=== PATIENT | female | born 1990 | race American Indian/Alaskan Native ===

== ENCOUNTER 2021-02-04 10:23 | Emergency (ER) | payer BC ==
[2021-02-04 11:37] LABS: Alanine Aminotransferase 9 units/L (7-56); Albumin 4.1 g/dL (3.9-5); Blood Urea Nitrogen 5 mg/dL (7-17); Calcium 9.4 mg/dL (8.4-10.2); Hemolysis Index 5
[2021-02-04 11:43] LABS: Basophils % (Auto) 0.4 % (0.0-1.8); Eosinophils # (Auto) 0.1 K/mm3 (0.0-0.4); Eosinophils % (Auto) 1.6 % (0.0-4.3); Hematocrit 37.2 % (30.3-42.9); Hemoglobin 12.7 gm/dl (10.1-14.3); Lymphocytes # (Auto) 1.6 K/mm3 (1.2-5.4); Lymphocytes % (Auto) 19.9 % (13.4-35.0); Mean Corpuscular HGB Conc 34 % (30-34); Mean Corpuscular Volume 84 fl (79-97); Monocytes # (Auto) 0.7 K/mm3 (0.0-0.8); Monocytes % (Auto) 8.6 % (0.0-7.3); Platelet Count 351 K/mm3 (140-440); Red Blood Count 4.44 M/mm3 (3.65-5.03); Red Cell Distribution Width 14.4 % (13.2-15.2)
[2021-02-04 12:00] LABS: BUN/Creatinine Ratio 8
--- NOTE | 2021-02-04 12:22 | Emergency Department Report ---
ED General Adult HPI - General Chief complaint: Vaginal Bleeding Stated complaint: 10WKS BLEEEDING Time Seen by Provider: 02/04/21 10:46 Source: patient Mode of arrival: Ambulatory Limitations: No Limitations - History of Present Illness Initial comments: 31-year-old -[place] female patient presents with bleeding during today. She states she noticed vaginal bleeding around 2 AM this morning that was very light and spotty. She has not used a full pad today. She denies any abdominal pain, dysuria/hematuria/urinary frequency, vaginal discharge/dyspareunia, fever/chills/sweats, or stool changes. She is G2, . She reports her first [facility] appointment is Monday next week. Patient states she is otherwise feeling well. No other past medical history. - Related Data Home Medications Medication Instructions Recorded Confirmed Last Taken Vit-Fe Fumar-FA [ 1 tab PO QDAY 10/07/20 10/07/20 Unknown Vitamin] Previous Rx's Medication Instructions Recorded Last Taken Type HYDROcodone/APAP 5-325 [[place] 1 each PO Q6HR PRN #15 tablet 10/07/20 Unknown Rx 5/325] Ibuprofen [Motrin] 800 mg PO Q8HR PRN #40 tablet 10/07/20 Unknown Rx Amoxicillin/Potassium Clav 1 each PO BID 5 Days #10 tablet 02/04/21 Unknown Rx [Augmentin 875-125 Tablet] Allergies Allergy/AdvReac Type Severity Reaction Status Date / Time No Known Allergies Allergy Verified 02/04/21 10:27 ED Review of Systems ROS: Stated complaint: 10WKS BLEEEDING Other details as noted in HPI Constitutional: denies: chills, fever, malaise Respiratory: denies: shortness of breath Cardiovascular: denies: chest pain Gastrointestinal: denies: abdominal pain, nausea, vomiting Genitourinary: abnormal menses. denies: urgency, dysuria, frequency, hematuria, discharge, dyspareunia Skin: denies: lesions Neurological: denies: headache Hematological/Lymphatic: denies: swollen glands ED Past Medical Hx - Past Medical History Previous Medical History?: No Hx Hypertension: No Hx Liver Disease: No Hx Renal Disease: No - Surgical History Additional Surgical History: BREAST REDUCTION - Social History Smoking Status: Never Smoker - Medications Home Medications: Home Medications Medication Instructions Recorded Confirmed Last Taken Type HYDROcodone/APAP 5-325 [[place] 1 each PO Q6HR PRN #15 tablet 10/07/20 Unknown Rx 5/325] Ibuprofen [Motrin] 800 mg PO Q8HR PRN #40 tablet 10/07/20 Unknown Rx Vit-Fe Fumar-FA [ 1 tab PO QDAY 10/07/20 10/07/20 Unknown History Vitamin] Amoxicillin/Potassium Clav 1 each PO BID 5 Days #10 tablet 02/04/21 Unknown Rx [Augmentin 875-125 Tablet] ED Physical Exam - General Limitations: No Limitations General appearance: alert, in no apparent distress - Head Head exam: Present: atraumatic, normocephalic - Eye Eye exam: Present: normal appearance. Absent: scleral icterus - Respiratory Respiratory exam: Present: normal lung sounds bilaterally. Absent: respiratory distress - Cardiovascular Cardiovascular Exam: Present: regular rate - GI/Abdominal GI/Abdominal exam: Present: soft, normal bowel sounds. Absent: distended, tenderness, guarding, rebound, rigid - Neurological Exam Neurological exam: Present: alert, oriented X3 - Psychiatric Psychiatric exam: Present: normal affect, normal mood - Skin Skin exam: Present: warm, dry, intact, normal color. Absent: rash ED Course Vital Signs 02/04/21 10:31 Temperature 98.6 F Pulse Rate 95 H Respiratory 20 Rate Blood Pressure 123/85 O2 Sat by Pulse 97 Oximetry ED Medical Decision Making - Lab Data Result diagrams: 02/04/21 10:59 02/04/21 10:59 - Radiology Data Radiology results: report reviewed ULTRASOUND OBSTETRIC INDICATION / CLINICAL INFORMATION: bleeding preg. Clinical Gestational Age (GA) in weeks, days: 10, 6 TECHNIQUE: Transabdominal. COMPARISON: None available. FINDINGS: GESTATIONAL SAC: Well-defined oval shape and intrauterine in location. YOLK SAC: Not seen EMBRYO/FETUS: No significant abnormality. - [place]-Rump Length = 3.5 cm = 10, 3 weeks, days - Heart Rate, beats per minute (if present) = 176 ADNEXA: There is a 2.4 cm cyst in the left ovary. FREE FLUID: None. ADDITIONAL FINDINGS: None. IMPRESSION: 1. Single, living intrauterine with estimated sonographic age of 10, 3 weeks, days. - Medical Decision Making 31-year-old -[place] female patient presents with bleeding during today. She states she noticed vaginal bleeding around 2 AM this morning that was very light and spotty. She has not used a full pad today. She denies any abdominal pain, dysuria/hematuria/urinary frequency, vaginal discharge/dyspareunia, fever/chills/sweats, or stool changes. She is G2, . She reports her first [facility] appointment is Monday next week. Patient states she is otherwise feeling well. No other past medical history. Normal IUP at 10 weeks 3 days noted on ultrasound. UA shows UTI. Augmentin given for infection. Patient is well-appearing, her vitals are normal, she is stable for discharge home. Recommend follow-up with [facility] as scheduled next week. Strict return precautions were discussed in detail with patient verbalized understanding. Critical care attestation.: If time is entered above; I have spent that time in minutes in the direct care of this critically ill patient, excluding procedure time. ED Disposition Clinical Impression: Vaginal bleeding during , UTI in Disposition: HOME / SELF CARE / HOMELESS Is pt being admited?: No Condition: Stable Additional Instructions: Follow-up with your [facility] as scheduled Prescriptions: Amoxicillin/Potassium Clav [Augmentin 875-125 Tablet] 1 each PO BID 5 Days #10 tablet
--- NOTE | 2021-02-04 13:33 | Ultrasound Report ---
ULTRASOUND OBSTETRIC INDICATION / CLINICAL INFORMATION: bleeding preg. Clinical Gestational Age (GA) in weeks, days: 10, 6 TECHNIQUE: Transabdominal. COMPARISON: None available. FINDINGS: GESTATIONAL SAC: Well-defined oval shape and intrauterine in location. YOLK SAC: Not seen EMBRYO/FETUS: No significant abnormality. - [place]-Rump Length = 3.5 cm = 10, 3 weeks, days - Heart Rate, beats per minute (if present) = 176 ADNEXA: There is a 2.4 cm cyst in the left ovary. FREE FLUID: None. ADDITIONAL FINDINGS: None. IMPRESSION: 1. Single, living intrauterine with estimated sonographic age of 10, 3 weeks, days. Signer Name: Hector Leung MD Signed: 02/04/2021 1:29 PM Workstation Name: [id number]
[2021-02-04 13:36] LABS: Bacteria,Urine 1+ /HPF (Negative); Bilirubin,Urine NEG (Negative); Blood,Urine LG (Negative); Color,Urine Yellow (Yellow); Mucus,Urine 1+ /HPF
[2021-02-04 13:58] VITALS: BP 133/75
== END 2021-02-04 13:58 | disposition home or self-care (01) ==
LOC: ED 10:23
DX: O20.9 Hemorrhage in early pregnancy, unspecified (principal); O23.41 Unspecified infection of urinary tract in pregnancy, first trimester; Z3A.10 10 weeks gestation of pregnancy; Z98.890 Other specified postprocedural states
CPT/HCPCS: 36415; 76801; 80053; 81001; 84702; 85025; 86900; 86901; 87086; 99284

== ENCOUNTER 2021-08-27 21:43 | Outpatient (CLI) | payer OTHER, BC ==
[2021-08-28 00:28] VITALS: BP 120/77
[2021-08-28] MEDS ORDERED: hydrOXYzine PAMOATE 25 MG CAP PO PRN (00:38)
== END 2021-08-28 01:05 | disposition home or self-care (01) ==
LOC: TRG 21:43 → APU 21:45 → TRG 08-28 01:05
PROVIDERS: ATTEND Obstetrics & Gynecology
DX: Z34.93 Encounter for supervision of normal pregnancy, unspecified, third trimester (principal); Z3A.40 40 weeks gestation of pregnancy
CPT/HCPCS: 59025

== ENCOUNTER 2021-08-29 19:46 | Outpatient (CLI) | payer OTHER, BC ==
[2021-08-29 20:34] VITALS: BP 115/65
[2021-08-29] MEDS ORDERED: MORPHINE 10 MG/1 ML INJ IM ONE (21:36)
[2021-08-29] MEDS ORDERED: HYDROmorphone 2 MG/1 ML INJ IM ONE (21:55)
== END 2021-08-30 04:23 | disposition home or self-care (01) ==
LOC: TRG 19:46 → APU 19:47 → TRG 08-30 04:23
PROVIDERS: ATTEND Obstetrics & Gynecology
DX: O62.9 Abnormality of forces of labor, unspecified (principal); O42.90 Premature rupture of membranes, unspecified as to length of time between rupture and onset of labor, unspecified weeks of gestation; Z3A.00 Weeks of gestation of pregnancy not specified
CPT/HCPCS: 59025; J1170

== ENCOUNTER 2021-08-31 16:59 | Inpatient (IN) | payer OTHER, BC ==
[2021-08-31 18:47] LABS: Hematocrit 30.7 % (30.3-42.9); Hemoglobin 10.3 gm/dl (10.1-14.3); Mean Corpuscular HGB Conc 34 % (30-34); Mean Corpuscular Volume 80 fl (79-97); Platelet Count 263 K/mm3 (140-440); Red Blood Count 3.84 M/mm3 (3.65-5.03); Red Cell Distribution Width 14.3 % (13.2-15.2)
[2021-08-31] MEDS ORDERED: ONDANSETRON 4 MG/2 ML INJ IV PRN (19:51)
[2021-08-31] MEDS ORDERED: CARBOPROST TROMETHAMINE 250 MCG/1 ML INJ IM PRN (19:51)
[2021-08-31] MEDS ORDERED: AMPICILLIN/NS 2 GM/100 ML 2 GM/100 ML BAG IV ONE (19:51)
[2021-08-31] MEDS ORDERED: LIDOCAINE (2%) 20 MG/1 ML VIAL 20 ML MDV INFILTRATI ONE (19:51)
[2021-08-31] MEDS ORDERED: LOPERAMIDE 2 MG CAP PO PRN (19:51)
[2021-08-31] MEDS ORDERED: MINERAL OIL 30 ML ORAL LIQD PO PRN (19:51)
[2021-08-31] MEDS ORDERED: METHYLERGONOVINE MALEATE 0.2 MG/ML VIAL IM PRN (19:51)
[2021-08-31] MEDS ORDERED: ePHEDrine SULFATE 50 MG/1 ML INJ IV PRN (19:51)
[2021-08-31] MEDS ORDERED: ACETAMINOPHEN 325 MG TAB PO PRN (19:51)
[2021-08-31] MEDS ORDERED: miSOPROStol 200 MCG TAB PR PRN (19:51)
[2021-08-31] MEDS ORDERED: TERBUTALINE 1 MG/1 ML INJ SUB-Q PRN (19:51)
[2021-08-31] MEDS ORDERED: BUTORPHANOL 2 MG/1 ML INJ IV PRN (19:51)
[2021-08-31] MEDS ORDERED: fentaNYL 100 MCG/2 ML INJ IV PRN (19:51)
[2021-08-31] MEDS ORDERED: OXYTOCIN 10 UNIT/1 ML INJ IM PRN (19:51)
[2021-08-31] MEDS ORDERED: OXYTOCIN DRIP 30 UNITS/500 ML BAG IV SCH ×2 (20:00)
[2021-08-31] MEDS ORDERED: LACTATED RINGERS 1,000 ML IV SCH (20:00)
[2021-09-01] MEDS ORDERED: diphenhydrAMINE 50 MG/ML VIAL IV PRN (00:12)
[2021-09-01] MEDS ORDERED: LACTATED RINGERS 250 ML IV SOLN IV ONE (00:12)
[2021-09-01] MEDS ORDERED: ONDANSETRON 4 MG/2 ML INJ IV PRN ×2 (00:12→16:00)
[2021-09-01] MEDS ORDERED: NalbUPHINE 10 MG/1 ML INJ IV PRN (00:12)
[2021-09-01] MEDS ORDERED: NALOXONE 2 MG/2 ML INJ IV PRN (00:12)
--- NOTE | 2021-09-01 00:43 | Anesthesia Consultation ---
Anesthesia Consult and Med Hx Date of service: 09/01/21 - Airway Anesthetic Teeth Evaluation: Good ROM Head & Neck: Adequate Mental/Hyoid Distance: Adequate Mallampati Class: Class II Intubation Access Assessment: Probably Good - Pulmonary Exam CTA: Yes - Cardiac Exam Cardiac Exam: RRR - Pre-Operative Health Status ASA Pre-Surgery Classification: ASA2 Proposed Anesthetic Plan: Epidural - Pulmonary Hx Smoking: No Hx Asthma: No Hx Respiratory Symptoms: No Hx Sleep Apnea: No - Cardiovascular System Hx Hypertension: No Hx Heart Attack/AMI: No Hx Angina: No - Central Nervous System Hx Seizures: No CVA: No Hx Psychiatric Problems: No - Gastrointestinal Hx Gastroesophageal Reflux Disease: No - Endocrine Hx Renal Disease: No Hx Liver Disease: No Hx Insulin Dependent Diabetes: No Hx Non-Insulin Dependent Diabetes: No Hx Thyroid Disease: No Hx Hypothyroidism: No Hx Hyperthyroidism: No - Hematic Hx Anemia: No Hx Sickle Cell Disease: No - Other Systems Hx Alcohol Use: No Hx Obesity: Yes
--- NOTE | 2021-09-01 00:44 | Progress Note ---
Labor Epidural - Labor Epidural Start Time: 00:30 Stop Time: 00:40 Performed by:: KAY HOOK Procedure: Patient is requesting epidural for labor and pain. H&P, labs were reviewed. Patient IDed, all questions and concerns were answered, and consent was signed. Timeout was performed at bedside. Patient in sitting position. Sterile prep and drape was performed. 3ml of 1% lidocaine skin wheal at L[3]- L [4]. 17- gauge Tuohy epidural needle was advanced to loss of resistance with air technique 8cm. Negative CSF negative blood. Epidural catheter advanced to [14] centimeters. [negative] Aspiration [negative] test dose. Sterile dressing applied. Patient tolerated procedure.
[2021-09-01] MEDS: fentaNYL-BUPIV 2 MCG/ML-0.125% 200 MCG/100 ML BAG EPIDURAL SCH ×2 (00:51→11:07)
[2021-09-01] MEDS: ePHEDrine SULFATE 50 MG/1 ML INJ IV PRN ×2 (00:57→01:05)
[2021-09-01] MEDS: AMPICILLIN/NS 1 GM/50 ML 1 GM/50 ML BAG IV SCH ×2 (01:32→05:51)
--- NOTE | 2021-09-01 08:41 | History and Physical Report ---
History of Present Illness Date of examination: 09/01/21 Date of admission: 08/31/21 17:11 Chief complaint: I'm here for induction History of present illness: Pt is a 31 year old who presents for induction of labor at 40.4 weeks gestation. Pt has had an uncomplicated course and 3 days of prodromal labor. Past History Past Medical History: no pertinent history Past Surgical History: no surgical history Family/Genetic History: none Social history: - Obstetrical History Expected Date of Delivery: 08/27/21 Actual Gestation: 40 Week(s) 5 Day(s) : 2 Medications and Allergies Allergies Allergy/AdvReac Type Severity Reaction Status Date / Time No Known Allergies Allergy Verified 02/04/21 10:27 Home Medications Medication Instructions Recorded Confirmed Last Taken Type HYDROcodone/APAP 5-325 [[place] 1 each PO Q6HR PRN #15 tablet 10/07/20 Unknown Rx 5/325] Ibuprofen [Motrin] 800 mg PO Q8HR PRN #40 tablet 10/07/20 Unknown Rx Vit-Fe Fumar-FA [ 1 tab PO QDAY 10/07/20 10/07/20 Unknown History Vitamin] Amoxicillin/Potassium Clav 1 each PO BID 5 Days #10 tablet 02/04/21 Unknown Rx [Augmentin 875-125 Tablet] Active Meds: Active Medications Acetaminophen (Acetaminophen 325 Mg Tab) 650 mg PO Q4H PRN PRN Reason: Pain, Mild (1-3) Last Admin: 08/31/21 20:32 Dose: 650 mg Butorphanol Tartrate (Butorphanol 2 Mg/1 Ml Inj) 2 mg IV Q2H PRN PRN Reason: Pain , Severe (7-10) Last Admin: 08/31/21 20:34 Dose: 2 mg Carboprost Tromethamine (Carboprost Tromethamine 250 Mcg/1 Ml Inj) 250 mcg IM ONCE PRN PRN Reason: Uterine Bleeding Diphenhydramine HCl (Diphenhydramine 50 Mg/Ml Vial) 12.5 mg IV Q2H PRN PRN Reason: Itching Ephedrine Sulfate (Ephedrine Sulfate 50 Mg/1 Ml Inj) 10 mg IV Q2M PRN PRN Reason: Hypotension Last Admin: 09/01/21 01:05 Dose: 10 mg Fentanyl (Fentanyl 100 Mcg/2 Ml Inj) 100 mcg IV Q2H PRN PRN Reason: Pain,Severe (7-10) LABOR PAIN Oxytocin/Sodium Chloride (Pitocin/Ns 30 Unit/500ml) 30 units in 500 mls @ 4 mls/hr IV TITR AVA; Protocol Last Titration: 09/01/21 05:50 Dose: 4 mls/hr, 4 mls/hr Lactated Ringer's (Lactated Ringers) 1,000 mls @ 125 mls/hr IV DIRECT AVA Ampicillin Sodium (Ampicillin/Ns 1 Gm/50 Ml) 1 gm in 50 mls @ 100 mls/hr IV Q4H AVA; Protocol Last Admin: 09/01/21 05:51 Dose: 100 mls/hr Fentanyl/Bupivacaine/Sodium Chlor (Fentanyl-Bupiv 2 Mcg/Ml-0.125%) 200 mcg in 100 mls @ 12 mls/hr EPIDURAL TITR AVA; Protocol Last Admin: 09/01/21 00:51 Dose: 12 mls/hr Loperamide HCl (Loperamide 2 Mg Cap) 2 mg PO ONCE PRN PRN Reason: give with Hemabate Methylergonovine Maleate (Methylergonovine Maleate 0.2 Mg/Ml Vial) 0.2 mg IM ONCE PRN PRN Reason: Uterine Bleeding Mineral Oil (Mineral Oil 30 Ml Oral Liqd) 30 ml PO QHS PRN PRN Reason: Constipation Misoprostol (Misoprostol 200 Mcg Tab) 800 mcg SD ONCE PRN PRN Reason: Uterine Bleeding Nalbuphine HCl (Nalbuphine 10 Mg/1 Ml Inj) 2.5 mg IV Q2H PRN PRN Reason: Itching Naloxone HCl (Naloxone 2 Mg/2 Ml Inj) 0.2 mg IV Q5M PRN PRN Reason: Respiratory sedation Ondansetron HCl (Ondansetron 4 Mg/2 Ml Inj) 4 mg IV Q8H PRN PRN Reason: Nausea And Vomiting Oxytocin (Oxytocin 10 Unit/1 Ml Inj) 10 unit IM ONCE PRN PRN Reason: Uterine Bleeding Terbutaline Sulfate (Terbutaline 1 Mg/1 Ml Inj) 0.25 mg SUB-Q ONCE PRN PRN Reason: Hyperstimulation/Hypertonicity Review of Systems All systems: negative Constitutional: weight gain, malaise Gastrointestinal: abdominal pain Genitourinary: pelvic pain, contractions - Vital Signs Vital signs: Vital Signs Pulse BP Pulse Ox 110 H 113/78 97 05/17/22 17:52 08/31/21 17:52 08/31/21 17:52 Temp Pulse Resp BP Pulse Ox 98.5 F 84 16 127/88 100 09/01/21 07:32 09/01/21 08:30 09/01/21 07:32 09/01/21 08:25 09/01/21 08:30 - Physical Exam Breasts: Cardiovascular: Regular rate, Normal S1, Normal S2 Lungs: Positive: Clear to auscultation, Normal air movement Abdomen: Positive: normal appearance, soft, normal bowel sounds. Negative: distention, tenderness Genitourinary (Female): Positive: normal external genitalia, normal perenium Vulva: both: normal Vagina: Positive: normal moisture. Negative: discharge Cervix: Negative: lesion, discharge Uterus: Positive: normal size, normal contour Adnexa: both: normal Anus/Rectum: Positive: normal perianal skin, heme negative. Negative: rectal mass, hemorrhoids Extremities: Deep Tendon Reflex Grade: Normal +2 - Obstetrical FHR: auscultation normal Cervical Dilatation: 3 Cervical Effacement Percentage: 90 station: -2 Uterine Contraction Pattern: Regular Uterine Tone Measurement Phase: Contraction Uterine Contraction Intensity: Moderate Results Result Diagrams: 08/31/21 18:00 Abnormal lab results 08/31/21 Range/Units 18:00 MCH 27 L (28-32) pg All other labs normal. Assessment and Plan IUP at 40.5 weeks here for labor induction. Admit for pitocin augmentation. A nticipate . Will treat for GBS positive status.
[2021-09-01] MEDS ORDERED: HYDROcodone/ACETAMINOPHEN 5-325 MG TAB PO PRN (16:00)
[2021-09-01] MEDS ORDERED: WITCH HAZEL/ GLYCERIN PAD TP PRN (16:00)
[2021-09-01] MEDS ORDERED: ACETAMINOPHEN 325 MG TAB PO PRN (16:00)
[2021-09-01] MEDS ORDERED: PROMETHAZINE 25 MG TAB PO PRN (16:30)
[2021-09-01] MEDS ORDERED: PROMETHAZINE 25 MG RECT SUPP PR PRN (16:30)
[2021-09-01] MEDS ORDERED: LANOLIN/ZINC/DIMETHICONE (LANSINOH) 7 GM TP PRN (16:30)
[2021-09-01] MEDS ORDERED: diphenhydrAMINE 25 MG CAP PO PRN (17:00)
--- NOTE | 2021-09-01 17:25 | Procedure Note ---
OB Delivery Note - Delivery Date of Delivery: 09/01/21 Surgeon: CAILIN LORA Estimated blood loss: 300cc - Vaginal Delivery presentation: vertex Delivery position: OA Intrapartum events: none Delivery induction: none Delivery augmentation: pitocin Delivery monitor: external FHT, external uterine Route of delivery: Delivery placenta: spontaneous Delivery cord: 3 umbilical vessels Episiotomy: none Delivery laceration: 2nd degree Delivery repair: vicryl Anesthesia: epidural - Infant A at 1 minute: 9 at 5 minutes: 9 Gender: Male (6 pounds 14 ounces)
[2021-09-01] MEDS: IBUPROFEN 800 MG TAB PO SCH ×2 (17:28→23:27)
[2021-09-01] MEDS ORDERED: MAGNESIUM HYDROXIDE (MOM) ORAL LIQD UDC PO PRN (22:00)
[2021-09-01] MEDS: DOCUSATE SODIUM 100 MG CAP PO SCH (23:27)
[2021-09-02 01:04] LABS: Hematocrit 27.1 % (30.3-42.9); Hemoglobin 9.1 gm/dl (10.1-14.3)
[2021-09-02] MEDS: IBUPROFEN 800 MG TAB PO SCH ×3 (05:08→18:22)
[2021-09-02] MEDS ORDERED: PRENATAL VIT27-FE FUMARATE-FOLIC ACID VIT TAB PO SCH (10:00)
[2021-09-02] MEDS: DOCUSATE SODIUM 100 MG CAP PO SCH ×2 (10:18→22:25)
--- NOTE | 2021-09-02 12:24 | Progress Note ---
Assessment and Plan PPD 1 s/p . Doing well. Plan for discharge on today Subjective - Subjective Date of service: 09/02/21 Principal diagnosis: spontaneous vaginal delivery Interval history: Pt is a 31 year old who presents for induction of labor at 40.4 weeks gestation. Pt has had an uncomplicated course and 3 days of prodromal labor. Patient reports: appetite normal, voiding normally, pain well controlled [place]: doing well Objective - Vital Signs Latest vital signs: Vital Signs Temp Pulse Resp BP BP Pulse Ox Pulse Ox 09/02/21 08:16 98.1 F 84 18 115/83 97 09/02/21 05:06 98 09/02/21 03:30 98 09/02/21 01:15 98 09/01/21 23:48 98.2 F 97 H 20 105/66 94 09/01/21 23:27 98 09/01/21 22:15 98 09/01/21 20:06 98.8 F 95 H 18 117/73 95 09/01/21 19:55 98 09/01/21 15:27 98.3 F 79 18 120/77 100 09/01/21 15:00 91 H 127/75 100 09/01/21 14:55 87 100 09/01/21 14:54 90 85 09/01/21 14:50 110 H 99 09/01/21 14:45 97 H 128/75 100 09/01/21 14:40 85 100 09/01/21 14:35 96 H 100 09/01/21 14:30 103 H 135/89 99 09/01/21 14:25 103 H 100 09/01/21 14:22 111 H 121/69 09/01/21 14:21 99.2 F 101 H 20 121/69 100 09/01/21 14:20 104 H 100 09/01/21 14:15 95 H 145/62 100 09/01/21 14:10 131 H 100 09/01/21 14:05 103 H 100 09/01/21 14:00 125 H 139/68 98 09/01/21 13:55 100 H 100 09/01/21 13:50 108 H 100 09/01/21 13:45 109 H 116/65 100 09/01/21 13:40 120 H 100 09/01/21 13:35 112 H 100 09/01/21 13:30 112 H 122/78 100 09/01/21 13:25 110 H 100 09/01/21 13:20 96 H 100 09/01/21 13:15 153 H 99 09/01/21 13:10 127 H 99 09/01/21 13:05 89 100 09/01/21 13:00 139 H 100 09/01/21 12:55 84 99 09/01/21 12:50 123 H 100 09/01/21 12:45 81 100 09/01/21 12:40 141 H 100 09/01/21 12:35 86 100 09/01/21 12:30 96 H 99 09/01/21 12:25 96 H 100 Pulse Ox 09/02/21 08:16 09/02/21 05:06 98 09/02/21 03:30 98 09/02/21 01:15 98 09/01/21 23:48 09/01/21 23:27 98 09/01/21 22:15 98 09/01/21 20:06 09/01/21 19:55 98 09/01/21 15:27 100 09/01/21 15:00 09/01/21 14:55 09/01/21 14:54 09/01/21 14:50 09/01/21 14:45 09/01/21 14:40 09/01/21 14:35 09/01/21 14:30 09/01/21 14:25 09/01/21 14:22 09/01/21 14:21 09/01/21 14:20 09/01/21 14:15 09/01/21 14:10 09/01/21 14:05 09/01/21 14:00 09/01/21 13:55 09/01/21 13:50 09/01/21 13:45 09/01/21 13:40 09/01/21 13:35 09/01/21 13:30 09/01/21 13:25 09/01/21 13:20 09/01/21 13:15 09/01/21 13:10 09/01/21 13:05 09/01/21 13:00 09/01/21 12:55 09/01/21 12:50 09/01/21 12:45 09/01/21 12:40 09/01/21 12:35 09/01/21 12:30 09/01/21 12:25 Intake and Output 09/01/21 09/02/21 09/02/21 22:59 06:59 14:59 Intake Total 120 Output Total 600 Balance -600 120 Intake: Oral 120 Output: Urine 600 Void 600 Other: Total, Intake Amount 120 Total, Output Amount 300 # Voids Void 1 1 - Exam Breasts: Present: deferred Cardiovascular: Present: Regular rate, Normal S1, Normal S2 Lungs: Present: Clear to auscultation, Normal air movement Abdomen: Present: normal appearance, soft, normal bowel sounds Uterus: Present: normal, firm Extremities: Present: normal - Labs Labs: Abnormal lab results 09/02/21 Range/Units 00:29 Hgb 9.1 L (10.1-14.3) gm/dl Hct 27.1 L (30.3-42.9) %
--- NOTE | 2021-09-02 12:28 | Discharge Summary ---
Providers - Providers Date of Admission: 08/31/21 17:11 Date of discharge: 09/02/21 Attending physician: CAILIN LORA Primary care physician: CAILIN LORA Hospitalization Reason for admission: induction of labor Delivery: Episiotomy: none Laceration: 2nd degree Other procedures: none Discharge diagnosis: IUP at term delivered baby: male Hospital course: unremarkable Condition at discharge: Good Disposition: 01 HOME / SELF CARE / HOMELESS Plan - Discharge Medications Prescriptions: Ibuprofen [Motrin 800 MG tab] 800 mg PO Q6H #40 tablet - Provider Discharge Summary Activity: routine, no sex for 6 weeks, no heavy lifting 4 weeks, no strenuous exercise Diet: routine Instructions: routine Additional instructions: [] Smoking cessation referral if applicable(refer to patient education folder for contact #) [] Refer to [facility]'s [facility] Booklet Call your doctor immediately for: * Fever > 100.5 * Heavy vaginal bleeding ( >1 pad per hour) * Severe persistent headache * Shortness of breath * Reddened, hot, painful area to leg or breast * Drainage or odor from incision. * Keep incision clean and dry at all times and follow doctor's instructions regarding bathing/showering - Follow up plan Follow up: CAILIN LORA MD [Primary Care Provider] - 6 Weeks
--- NOTE | 2021-09-02 14:11 | Post Anesthesia Evaluation ---
- Post Anesthesia Evaluation Patient Participated: Yes Airway Patent: Yes Stable Respiratory Function: Yes Nausea/Vomiting: No Temp > 96.8F: Yes Pain Manageable: Yes Adequeate Hydration: Yes Anesthesia Complications: No Block Receding Appropriately: Yes Patient on Ventilator: No
[2021-09-03 08:20] VITALS: BP 103/69
== END 2021-09-03 10:28 | disposition home or self-care (01) | DRG 807 ==
LOC: TRG 16:59 → APU 17:02 → TRG 17:09 → LD 17:11 → OB 09-01 15:26
PROVIDERS: ADMIT Obstetrics & Gynecology; ATTEND Obstetrics & Gynecology
PROC: 10E0XZZ Delivery of Products of Conception, External Approach (ICD-10-PCS; principal; 2021-09-01)
PROC: 0KQM0ZZ Repair Perineum Muscle, Open Approach (ICD-10-PCS; 2021-09-01)
PROC: 3E0R3BZ Introduction of Anesthetic Agent into Spinal Canal, Percutaneous Approach (ICD-10-PCS; 2021-09-01)
PROC: 00HU33Z Insertion of Infusion Device into Spinal Canal, Percutaneous Approach (ICD-10-PCS; 2021-09-01)
DX: O99.824 Streptococcus B carrier state complicating childbirth (principal); Z37.0 Single live birth; Z3A.40 40 weeks gestation of pregnancy; Z20.822 Contact with and (suspected) exposure to COVID-19; O99.214 Obesity complicating childbirth; O70.1 Second degree perineal laceration during delivery
CPT/HCPCS: 36415; 59025; 85014; 85018; 85027; 86592; 86850; 86900; 86901; 99211; G0378; J3490; G0463; J0290; J0595; J1170; J2590; U0003